=== PATIENT | female | born 1935 | race Caucasian/White ===

== ENCOUNTER → 2021-01-23 15:00 | Outpatient (CLI) | payer OTHER | END | disposition home or self-care (01) | LOC: PPH VACUNA 15:00 | DX: Z23 Encounter for immunization (principal) ==

== ENCOUNTER 2021-08-09 10:13 | Outpatient (CLI) | payer OTHER | END 2021-08-09 10:17 | disposition home or self-care (01) | LOC: RAD 10:13 | PROVIDERS: ATTEND Family Medicine | DX: M54.40 Lumbago with sciatica, unspecified side (principal); R29.6 Repeated falls ==

== ENCOUNTER 2022-02-06 08:15 | Outpatient (CLI) | payer OTHER | END 2022-02-06 08:31 | disposition home or self-care (01) | LOC: TOM 08:15 | PROVIDERS: ATTEND Internal Medicine | DX: D50.8 Other iron deficiency anemias (principal); K56.50 Intestinal adhesions [bands], unspecified as to partial versus complete obstruction ==

== ENCOUNTER → 2023-08-20 | Emergency (ER) | payer OTHER ==
[~2023-08-20] VITALS: Ht 157.5 cm; Wt 56.7 kg
[~2023-08-20] MED LIST: ADULT LOW DOSE81 M1 PO; AMLODIPINE-OLM1 EAC2; APETIGEN-PLUS1 EACH PO; APLENZIN174 MG; ATORVASTATIN CA10 MG PO; BUPROPION XL450 MG; LASIX20 MG PO; METFORMIN HCL500 M3 PO; MULTI VITAMIN1 EACH PO; PLAVIX75 MG PO; SYNTHROID75 MCG PO; TENORMIN100 M1 PO; VALSARTAN-HCTZ1 EAC2 PO
== END | disposition left against medical advice (07) ==
LOC: ER 18:45
DX: S09.8XXA Other specified injuries of head, initial encounter (principal); W19.XXXA Unspecified fall, initial encounter; Y93.89 Activity, other specified; Y92.89 Other specified places as the place of occurrence of the external cause; Y99.8 Other external cause status; I10 Essential (primary) hypertension; E03.8 Other specified hypothyroidism